=== PATIENT | male | born 1995 ===

== ENCOUNTER 2023-03-04 12:07 | Inpatient (IN) | payer MEDICAID, OTHER ==
[2023-03-04] MEDS ORDERED: SODIUM CHLORIDE 0.9% 1,000 ML IV ONE (12:50)
--- NOTE | 2023-03-04 13:03 | ED ---
General Adult HPI - General Chief complaint: Overdose Stated complaint: Overdose Time Seen by Provider: 03/04/23 12:15 Source: patient, family, EMS, RN notes reviewed, old records reviewed Mode of arrival: ambulatory Limitations: altered mental status - History of Present Illness Initial comments: 27-year-old male presents for opiate overdose. Patient admits to snorting heroin and fentanyl. He was on his way to rehabilitation with his mother. He states that he had taken some benzodiazepines as well. He was breathing but not arousable and was given total 4 mg of intranasal Narcan and was brought to the hospital for evaluation. He denies intentional overdose. No physical complaints. - Related Data Allergies Allergy/AdvReac Type Severity Reaction Status Date / Time No Known Allergies Allergy Verified 03/04/23 12:58 Review of Systems ROS Statement: Those systems with pertinent positive or pertinent negative responses have been documented in the HPI. ROS Other: All systems not noted in ROS Statement are negative. Past Medical History Additional Past Medical History / Comment(s): Anxiety, depression. No inpatient hospitalizations. History of Any Multi-Drug Resistant Organisms: None Reported Past Psychological History: Anxiety, Depression Past Drug Use History: Heroin, Marijuana, Methamphetamine General Exam Limitations: altered mental status General appearance: alert, in no apparent distress Head exam: Present: atraumatic, normocephalic Eye exam: Present: normal appearance, PERRL ENT exam: Present: normal exam Neck exam: Present: normal inspection. Absent: tenderness, meningismus Respiratory exam: Present: normal lung sounds bilaterally. Absent: respiratory distress, wheezes Cardiovascular Exam: Present: regular rate, normal rhythm GI/Abdominal exam: Present: soft. Absent: distended, tenderness, guarding Extremities exam: Present: normal inspection, normal capillary refill. Absent: pedal edema Neurological exam: Present: alert, oriented X3, CN II-XII intact. Absent: motor sensory deficit Psychiatric exam: Present: normal affect, normal mood Skin exam: Present: warm, dry, intact. Absent: cyanosis, diaphoretic Course Vital Signs 03/04/23 03/04/23 12:33 13:59 Temperature 98.5 F Pulse Rate 70 86 Respiratory 16 18 Rate Blood Pressure 100/60 106/60 O2 Sat by Pulse 96 95 Oximetry - Reevaluation(s) Reevaluation #1: 03/04/23 14:36 Patient had been medically cleared and was eager for discharge. He had made suicidal comments to his mother who has petitioned him for psychiatric evaluation. He will be evaluated by EPS nurse. Medical Decision Making - Medical Decision Making Was pt. sent in by a medical professional or institution (, [facility], [employer], urgent care, hospital, or halfway...) When possible be specific @ -No Did you speak to anyone other than the patient for history (EMS, parent, family, police, friend...)? What history was obtained from this source @ -EMS Did you review nursing and triage notes (agree or disagree)? Why? @ -I reviewed and agree with nursing and triage notes Were old charts reviewed (outside hosp., previous admission, EMS record, old EKG, old radiological studies, urgent care reports/EKG's, halfway records)? Report findings @ -No old charts were reviewed Differential Diagnosis (chest pain, altered mental status, abdominal pain women, abdominal pain men, vaginal bleeding, weakness, fever, dyspnea, syncope, headache, dizziness, GI bleed, back pain, seizure, CVA, palpatations, mental health, musculoskeletal)? @ -Differential Mental Health Depression, anxiety, bipolar, psychosis, schizophrenia, borderline personality, situational depression, adjustment disorder, behavioral disorder, brain tumor, malingering, substance abuse, encephalopathy, medication reaction, dementia, hypothyroidism, degenerative neurologic disorder, lupus.... This is not meant to be all-inclusive list EKG interpreted by me (3pts min.). @ -As above X-rays interpreted by me (1pt min.). @ -None done CT interpreted by me (1pt min.). @ -None done U/S interpreted by me (1pt. min.). @ -None done What testing was considered but not performed or refused? (CT, X-rays, U/S, labs)? Why? @ -None What meds were considered but not given or refused? Why? @ -None Did you discuss the management of the patient with other professionals (professionals i.e. [facility], [employer], lab, RT, psych nurse, high school social science teacher, candy spreader, teacher, administrative services officer, casework manager)? Give summary @ -case discussed with EPS nurse Was smoking cessation discussed for >3mins.? @ -No Was critical care preformed (if so, how long)? @ -No Were there social determinants of health that impacted care today? How? (Homelessness, low income, unemployed, alcoholism, drug addiction, transportation, low edu. Level, literacy, decrease access to med. care, fdc, rehab)? @ -No Was there de-escalation of care discussed even if they declined (Discuss DNR or withdrawal of care, Hospice)? DNR status @ -No What co-morbidities impacted this encounter? (DM, HTN, Smoking, COPD, CAD, Cancer, CVA, ARF, Chemo, Hep., AIDS, mental health diagnosis, sleep apnea, morbid obesity)? @ -Mental health diagnosis, drug overdose Was patient admitted / discharged? Hospital course, mention meds given and route, prescriptions, significant lab abnormalities, going to OR and other pertinent info. @ -Patient had initially presented as an overdose requiring Narcan. Patient was medically cleared and was about to the emergency department when he made suicidal statements and was petitioned by his mother. Ultimately the patient was not felt to be safe for discharge and required inpatient psychiatric care. I do agree with this assessment. I completed a clinical certification on this patient. Undiagnosed new problem with uncertain prognosis? @ -No Drug Therapy requiring intensive monitoring for toxicity (Heparin, Nitro, Insulin, Cardizem)? @ -No Were any procedures done? @ -No Diagnosis/symptom? @ -[Overdose, depression, suicidal ideation Acute, or Chronic, or Acute on Chronic? @ -Acute Uncomplicated (without systemic symptoms) or Complicated (systemic symptoms)? @ -Complicated Side effects of treatment? @ -No Exacerbation, Progression, or Severe Exacerbation? @ -No Poses a threat to life or bodily function? How? (Chest pain, USA, OR, pneumonia, PE, COPD, DKA, ARF, appy, cholecystitis, CVA, Diverticulitis, Homicidal, Suicidal, threat to staff... and all critical care pts) @ -Yes, overdose, cardiopulmonary arrest, suicide and self-harm - Lab Data Result diagrams: 03/04/23 12:58 03/04/23 12:58 Lab Results 03/04/23 03/04/23 03/04/23 Range/Units 12:58 12:58 14:45 WBC 6.3 (3.8-10.6) k/uL RBC 4.13 L (4.30-5.90) m/uL Hgb 13.2 (13.0-17.5) gm/dL Hct 39.2 (39.0-53.0) % MCV 94.8 (80.0-100.0) fL MCH 31.9 (25.0-35.0) pg MCHC 33.7 (31.0-37.0) g/dL RDW 12.9 (11.5-15.5) % Plt Count 198 (150-450) k/uL MPV 8.0 Neutrophils % 66 % Lymphocytes % 20 % Monocytes % 8 % Eosinophils % 3 % Basophils % 1 % Neutrophils # 4.2 (1.3-7.7) k/uL Lymphocytes # 1.3 (1.0-4.8) k/uL Monocytes # 0.5 (0-1.0) k/uL Eosinophils # 0.2 (0-0.7) k/uL Basophils # 0.1 (0-0.2) k/uL Sodium 136 L (137-145) mmol/L Potassium 4.2 (3.5-5.1) mmol/L Chloride 97 L (98-107) mmol/L Carbon Dioxide 32 H (22-30) mmol/L Anion Gap 7 mmol/L BUN 18 (9-20) mg/dL Creatinine 0.50 L (0.66-1.25) mg/dL Est GFR (CKD-EPI)AfAm >90 (>60 ml/min/1.73 sqM) Est GFR (CKD-EPI)NonAf >90 (>60 ml/min/1.73 sqM) Glucose 92 (74-99) mg/dL Calcium 9.0 (8.4-10.2) mg/dL Total Bilirubin 0.6 (0.2-1.3) mg/dL AST 47 (17-59) U/L ALT 24 (4-49) U/L Alkaline Phosphatase 78 (38-126) U/L Total Protein 6.8 (6.3-8.2) g/dL Albumin 4.2 (3.5-5.0) g/dL Salicylates <1.0 mg/dL Urine Opiates Screen Detected H (NotDetected) Ur Oxycodone Screen Not Detected (NotDetected) Urine Methadone Screen Not Detected (NotDetected) Ur Propoxyphene Screen Not Detected (NotDetected) Acetaminophen <10.0 ug/mL Ur Barbiturates Screen Not Detected (NotDetected) U Tricyclic Antidepress Not Detected (NotDetected) Ur Phencyclidine Scrn Not Detected (NotDetected) Ur Amphetamines Screen Not Detected (NotDetected) U Methamphetamines Scrn Not Detected (NotDetected) U Benzodiazepines Scrn Detected H (NotDetected) Urine Cocaine Screen Not Detected (NotDetected) U Marijuana (THC) Screen Detected H (NotDetected) Serum Alcohol <10 mg/dL Disposition Clinical Impression: Accidental drug overdose, Suicidal ideation Disposition: ADMITTED IP TO THIS [facility] Condition: Stable Is patient prescribed a controlled substance at d/c from ED?: No Referrals: Nonstaff,Physician [Primary Care Provider] - 1-2 days Time of Disposition: 17:31
[2023-03-04 13:08] LABS: Basophils # (A) 0.1 k/uL (0-0.2); Basophils % (A) 1 %; Eosinophils # (A) 0.2 k/uL (0-0.7); Eosinophils % (A) 3 %; HCT 39.2 % (39.0-53.0); HGB 13.2 gm/dL (13.0-17.5); Lymphocytes # (A) 1.3 k/uL (1.0-4.8); Lymphocytes % (A) 20 %; MCH 31.9 pg (25.0-35.0); MCHC 33.7 g/dL (31.0-37.0); MCV 94.8 fL (80.0-100.0); Monocytes # (A) 0.5 k/uL (0-1.0); Monocytes % (A) 8 %; Neutrophils # (A) 4.2 k/uL (1.3-7.7); Neutrophils % (A) 66 %; Platelet Count 198 k/uL (150-450); RBC 4.13 m/uL (4.30-5.90); RDW 12.9 % (11.5-15.5); WBC 6.3 k/uL (3.8-10.6)
[2023-03-04 13:20] LABS: ALT 24 U/L (4-49); AST 47 U/L (17-59); Acetaminophen <10.0 ug/mL; African American GFR (CKD) >90 (>60 ml/min/1.73 sqM); Albumin 4.2 g/dL (3.5-5.0); Alcohol <10 mg/dL; Alkaline Phosphatase 78 U/L (38-126); Anion Gap 7 mmol/L; Blood Urea Nitrogen 18 mg/dL (9-20); Carbon Dioxide 32 mmol/L (22-30); Chloride 97 mmol/L (98-107); Glucose 92 mg/dL (74-99); Non-African American GFR(CKD) >90 (>60 ml/min/1.73 sqM); Potassium 4.2 mmol/L (3.5-5.1); Salicylate <1.0 mg/dL; Sodium 136 mmol/L (137-145); Total Bilirubin 0.6 mg/dL (0.2-1.3); Total Protein 6.8 g/dL (6.3-8.2)
[2023-03-04 15:24] LABS: Amphetamine Screen,Urine Not Detected (NotDetected); Barbiturate Screen,Urine Not Detected (NotDetected); Benzodiazepines Screen,Urine Detected (NotDetected); Cocaine Screen,Urine Not Detected (NotDetected); Methadone Screen, Urine Not Detected (NotDetected); Opiate Screen,Urine Detected (NotDetected); Oxycodone Screen, Urine Not Detected (NotDetected); Phencyclidine Screen,Urine Not Detected (NotDetected); Tricyclic Antidepressant,Urine Not Detected (NotDetected); Urn Cannabinoid Scrn Detected (NotDetected)
[2023-03-04] MEDS ORDERED: HALOPERIDOL LACTATE 5 MG/ML 1 ML VIAL IM PRN (18:40)
[2023-03-04] MEDS ORDERED: MAGNESIUM HYDROXIDE 2,400 MG/10 ML CUP PO PRN (18:40)
[2023-03-04] MEDS ORDERED: LORazepam 2 MG/ML INJ IM PRN (18:44)
[2023-03-04] MEDS ORDERED: haloperidoL 5 MG TAB PO PRN (18:45)
[2023-03-04] MEDS: LORazepam 1 MG TAB PO PRN (21:27)
--- NOTE | 2023-03-05 00:14 | P.CONS ---
History of Present Illness - Reason for Consult Consult date: 03/05/23 - History of Present Illness The patient is a 27-year-old male with a PMH of polysubstance abuse who was brought into the emergency room after an opiate overdose. The patient was admitted to the mental health unit where he was evaluated. The patient states that he had been struggling with opiate use for several years now and felt that he was addicted. He reports that he had been sober for 3 weeks and was planning to go to a detox facility when he relapsed and subsequently overdose en Route to [facility]. The patient was subsequently given intranasal Narcan by the staff members at [facility] and was taken to the emergency room. Patient reports feeling at his baseline at the time of interview and denied any active complaints. He denied experiencing chest discomfort, shortness of breath, fever, chills, cough, nausea, vomiting, abdominal pain, diarrhea. He denied tobacco or alcohol use. ED documentation was reviewed. Laboratory evaluation in the emergency room was reviewed with urine tox positive for benzodiazepines, marijuana, and opiates with sodium 136, CO2 32, and creatinine 0.5. Review of systems: Pertinent positives and negatives as discussed in HPI, a complete review of systems was performed and all other systems are negative. Physical examination: General: non toxic, no distress, appears at stated age, normal weight Derm: no unusual rashes/lesions, no unusual ecchymoses, warm, dry Head: atraumatic, normocephalic, symmetric Eyes: EOMI, no lid lag, anicteric sclera ENT: Nose and ears atraumatic, no thrush, no pharyngeal erythema Neck: trachea midline, supple Mouth: no lip lesion, mucus membranes moist Cardiovascular: S1S2 reg, no murmur, no edema Lungs: CTA bilateral, no rhonchi, no rales , no accessory muscle use Abdominal: soft, nontender to palpation, no guarding Ext: no gross muscle atrophy, no contractures, Neuro: No gross focal neuro deficits noted Psych: Alert, oriented, appropriate affect Assessment: Polysubstance abuse with opiate overdose Imaging: None performed Data Review: Laboratory evaluation in the emergency room was reviewed with urine tox positive for benzodiazepines, marijuana, and opiates with sodium 136, CO2 32, and creatinine 0.5. Plan: Patient strongly advised on importance of cessation from polysubstance use Obtain repeat BMP to check for resolution of alkalosis Thank you for allowing us to participate in the care of this patient. We will follow peripherally. Do not hesitate to contact us with questions. Someone can be reached from the [facility] hospitalist group at all hours of the day at [phone]. Past Medical History Additional Past Medical History / Comment(s): Anxiety, depression. No inpatient hospitalizations. History of Any Multi-Drug Resistant Organisms: None Reported Smoking Status: Current every day smoker - Past Family History Mother Family Medical History: Hypertension Medications and Allergies Home Medications Medication Instructions Recorded Confirmed Type Buprenorphine/Naloxone 8Mg/2Mg 1 film SL BID 03/04/23 03/04/23 History [Suboxone 8-2Mg Film] PARoxetine [Paxil] 20 mg PO HS 03/04/23 03/04/23 History Allergies Allergy/AdvReac Type Severity Reaction Status Date / Time No Known Allergies Allergy Verified 03/04/23 19:48 Physical Exam Vitals: Vital Signs Temp Pulse Pulse Resp BP BP Pulse Ox 03/04/23 19:59 98.2 F 77 16 136/76 03/04/23 17:56 80 18 106/60 98 03/04/23 13:59 86 18 106/60 95 03/04/23 12:33 98.5 F 70 16 100/60 96 Intake and Output 03/04/23 03/04/23 03/05/23 14:59 22:59 06:59 Other: Weight 61.235 kg 61.235 kg Results CBC & Chem 7: 03/04/23 12:58 03/04/23 12:58 Labs: Abnormal Lab Results - Last 24 Hours (Table) 03/04/23 03/04/23 03/04/23 Range/Units 12:58 12:58 14:45 RBC 4.13 L (4.30-5.90) m/uL Sodium 136 L (137-145) mmol/L Chloride 97 L (98-107) mmol/L Carbon Dioxide 32 H (22-30) mmol/L Creatinine 0.50 L (0.66-1.25) mg/dL Urine Opiates Screen Detected H (NotDetected) U Benzodiazepines Scrn Detected H (NotDetected) U Marijuana (THC) Screen Detected H (NotDetected)
[2023-03-05] MEDS: LORazepam 1 MG TAB PO PRN ×2 (03:22→21:01)
[2023-03-05] MEDS: NICOTINE 14MG/24HR PATCH TRANSDERM SCH (08:08)
[2023-03-05 11:04] LABS: ALT 30 U/L (4-49); AST 65 U/L (17-59); African American GFR (CKD) >90 (>60 ml/min/1.73 sqM); Albumin 4.2 g/dL (3.5-5.0); Alkaline Phosphatase 58 U/L (38-126); Anion Gap 5 mmol/L; Blood Urea Nitrogen 9 mg/dL (9-20); Calcium 8.9 mg/dL (8.4-10.2); Carbon Dioxide 33 mmol/L (22-30); Chloride 101 mmol/L (98-107); Glucose 96 mg/dL (74-99); Non-African American GFR(CKD) >90 (>60 ml/min/1.73 sqM); Potassium 4.4 mmol/L (3.5-5.1); Sodium 139 mmol/L (137-145); Total Bilirubin 0.5 mg/dL (0.2-1.3)
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
[2023-03-05 23:03] LABS: LDL Cholesterol,Calculated 108.5 mg/dL (0.0-131.0)
[2023-03-06] MEDS: LORazepam 1 MG TAB PO PRN ×3 (04:40→20:03)
[2023-03-06 05:34] LABS: African American GFR (CKD) >90 (>60 ml/min/1.73 sqM); Anion Gap 3 mmol/L; Blood Urea Nitrogen 9 mg/dL (9-20); Calcium 9.2 mg/dL (8.4-10.2); Carbon Dioxide 34 mmol/L (22-30); Chloride 101 mmol/L (98-107); Glucose 110 mg/dL (74-99); Non-African American GFR(CKD) >90 (>60 ml/min/1.73 sqM); Potassium 4.5 mmol/L (3.5-5.1); Sodium 138 mmol/L (137-145)
[2023-03-06] MEDS: NICOTINE 14MG/24HR PATCH TRANSDERM SCH (08:49)
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
--- NOTE | 2023-03-06 09:24 | P.PN ---
Subjective Progress Note Date: 03/06/23 Principal diagnosis: Diagnosis: Polysubstance use disorder/mood disorder secondary to substance use Subjective: The patient said that he felt great yesterday calm able to handle i rritants and today starting into withdrawal symptoms were any knows irritability trouble concentrating. On the evaluation he scored 9 which is moderate. In the past he had help from 02/26 of Suboxone which she would use for a few days and then go down to half of that and then come off. He also found that trazodone was helpful to sleep I assured him that trazodone was not addicting therefore was probably a reasonable thing to try. He does have some trouble with sleep. Objective: He is cooperative alert oriented some increased psychomotor activity but logical no signs of psychosis he is not suicidal but wondering whether 30 days in her rehab is going to fix him. Gait and station are normal self-care is adequate some pacing in the [place] Assessment: He does seem more anxious and NG than yesterday Plan: Will add some trazodone at night 100 mg and half Suboxone to aid with withdrawal and increase his ability to participate in the program. Objective - Vital Signs Vital signs: Vital Signs Temp 98.6 F 03/06/23 09:00 Pulse 113 H 03/06/23 09:00 Resp 18 03/06/23 09:00 BP 119/74 03/06/23 09:00 Pulse Ox 99 03/05/23 02:41 FiO2 - Labs CBC & Chem 7: 03/04/23 12:58 03/06/23 05:07 Labs: Abnormal Lab Results - Last 24 Hours (Table) 03/05/23 03/06/23 Range/Units 10:28 05:07 Carbon Dioxide 33 H 34 H (22-30) mmol/L Creatinine 0.47 L 0.48 L (0.66-1.25) mg/dL Glucose 110 H (74-99) mg/dL AST 65 H (17-59) U/L HDL Cholesterol 38.70 L (40.00-60.00) mg/dL
[2023-03-06] MEDS: BUPRENORPHINE-NALOX 8-2 MG TAB 1 EACH TAB.SUBL SL SCH (09:43)
[2023-03-06] MEDS ORDERED: ONDANSETRON 4 MG TAB PO PRN (11:18)
[2023-03-06] MEDS: ACETAMINOPHEN TAB 325 MG TAB PO PRN ×3 (11:34→21:04)
[2023-03-06] MEDS ORDERED: traZODone HCL 100 MG TAB PO SCH (21:00)
[2023-03-07 07:11] VITALS: BP 124/70; PULSE 80; RESP 16; TEMP 98.9
[2023-03-07] MEDS: BUPRENORPHINE-NALOX 8-2 MG TAB 1 EACH TAB.SUBL SL SCH (08:33)
[2023-03-07] MEDS: MAG HYDROX/AL HYDROX/SIMETH 30 ML CUP PO PRN ×2 (08:34→12:45)
[2023-03-07] MEDS ORDERED: ONDANSETRON ODT 4 MG TAB PO PRN (10:33)
[2023-03-07] MEDS ORDERED: LOPERAMIDE 2 MG CAP PO PRN (10:36)
[2023-03-07] MEDS: LORazepam 1 MG TAB PO PRN (10:50)
--- NOTE | 2023-03-07 11:51 | P.DS ---
Providers Date of admission: 03/04/23 18:37 Expected date of discharge: 03/07/23 Attending physician: Gaurang Russell MD Consults: 03/04/23 18:40 Consult Physician Routine Consulting Provider: [facility] Consult Reason/Comments: medical management Do you want consulting provider notified?: Yes, Notify in am Primary care physician: Physician Nonstaff - Discharge Diagnosis(es) (1) Accidental drug overdose Current Visit: Yes Status: Acute Priority: High (2) Substance induced mood disorder Current Visit: Yes Status: Acute Priority: High (3) Opiate dependence, continuous Current Visit: Yes Status: Chronic Priority: Medium (4) Cannabis use disorder Current Visit: Yes Status: Chronic Priority: Medium Hospital Course: Admission HPI: Initial psychiatric evaluation was completed by Dr. Rubin on 03/06/2023 who wrote: "The patient is a 27-year-old male with a PMH of polysubstance abuse who was brought into the emergency room after an opiate overdose. The patient was admitted to the mental health unit where he was evaluated. The patient states that he had been struggling with opiate use for several years now and felt that he was addicted. He reports that he had been sober for 3 weeks and was planning to go to a detox facility when he relapsed and subsequently overdose in the [facility] rehab program. He was riding in the car with his mother. He confesses to the irrational thought that since he was going to be giving up drugs permanently he should have one last fling one last chance to be happy on drugs. He admits that it was fortunate that he did this fully staying in the [facility] because they got him help right away or he would've . Patient admits to snorting heroin and fentanyl. He states that he had taken some benzodiazepines as well. He was breathing but not arousable and was given a total of 4 mg of intranasal Narcan and was brought to the hospital for evaluation. The patient was subsequently given intranasal Narcan by the staff members at [place] and was taken to the emergency room. In the emergency room the patient showed no insight and seemed to think that his mother was trying have him sent to [facility]. He appeared to get more upset when she was in the room. He yelled and tried to intimidate her. He held on to her shirt so she could not leave. He now is terribly embarrassed about what he did but still wants to go back to [place] and get help. Medications at home: Supposedly has been on buprenorphine but taking buprenorphine along with all the opioidsis dangerous and evidently didn't help him stay off the opioids. He was also on Paxil 20 at night. Patient reports feeling hopeful and somewhat embarrassed and calm at the time of the interview. He denied experiencing chest discomfort, shortness of breath, fever, chills, cough, nausea, vomiting, abdominal pain, diarrhea. He denied tobacco or alcohol use. He does complain of nightmares and insomnia but his appetite has been normal self-care is adequate. Hospital course: Upon admission to the unit patient was initially presented as calm, cooperative, and future oriented. Patient was directable and agreeable to commence treatment. Patient got along well with other patients on the unit and followed unit protocol. Patient was compliant with the medications and denied any side effect s throughout hospital course. Patient was started on trazodone for insomnia and Suboxone for opiate withdrawal. Patient spoke of his stressors and engaged in therapy both group and individual. Patient was also seen by medical team for history and physical exam. The patient remained future and goal oriented during the hospitalization and displayed no significant signs or symptoms of overt psychiatric pathology. His primary diagnosis is substance use related. He expresses strong desire to return to rehab. He has strong support from his family. He was transitioned to Remeron for management of nausea and insomnia. The patient was also treated symptomatically with the use of Zofran and Imodium. On the day of discharge, the patient is vehemently denying any suicidal or homicidal ideation, intention, and/or plan. He denies any paranoia or delusions. He has been adherent with his medication is not endorsing any significant side effects. He is future and goal oriented. He was counseled at length the importance of medication adherence and appropriate follow-up. The patient does have a significant history of substance abuse and was counseled great length on abstaining from all substances including tobacco, marijuana, alcohol, and illicit drug use. The patient plans to go to inpatient substance abuse rehabilitation upon discharge. He reports no access to firearms or other weapons. On the day of discharge, he is not endorsing any medical issues or concerns and denies any chest pain, shortness of breath, palpitations, or involuntary muscle movements. Prior to discharge, family meeting will be arranged by executive secretary social welfare to answer any questions and ensure safety. The patient was encouraged to follow-up in the outpatient setting to address comorbid psychiatric pathology that accompany substance use. Mental status exam: General Appearance: Patient appears to be stated age is alert, pleasant, and cooperative. Patient is in no acute distress and has fair hygiene and grooming Behavior: Patient is calmly seated without any agitated behavior. Speech: Patient's speech is fluent and nonpressured. Mood/Affect: Patient reports their mood is "much better", affect is congruent and euthymic to bright. Suicidality/Homicidality: Patient denies having any suicidal or homicidal ideation intent or plan. Perceptions: Patient denies any auditory or visual hallucinations. Though content/process: There is no evidence of any delusional thought content and thought process is linear and goal-directed. Patient is future oriented Memory and concentration: AOX3, grossly intact for the purposes of this session. Can spell "WORLD" backwards correctly. Judgment and insight: Improved with guarded prognosis Impression: Substance-induced mood disorder Opiate use disorder Cannabis use disorder Plan: -Continue with discharge today as patient has improved and stabilized psychiatrically and is not currently an imminent threat to himself and/or others. Patient will remain at chronically elevated risk for harm to self and/or others due to his impulsivity and polysubstance abuse. -Continue medications: Remeron 15 mg by mouth at bedtime for depression/insomnia/nausea Zofran when necessary for nausea -Patient was counseled on the need for medication compliance and appropriate follow-up at mental health and also primary care for medical issues. Patient verbalized understanding and agreed. -Social work to arrange for and conduct family meeting to ensure safety upon discharge and answer any questions/concerns. Social work also to arrange for patients follow up appointments for psychiatric care along with follow up with primary care provider. -Patient counseled on abstaining from recreational drugs and marijuana and alcohol. Was informed/educated on the adverse effects on their physical and mental health. Patient verbally agreed and understood. Patient will be going to [place] for inpatient substance abuse rehabilitation. -Patient was instructed to return to the hospital or seek immediate medical care if their psychiatric or medical symptoms do worsen or reoccur. -Psychoeducation and supportive therapy provided to patient. Risks and benefits of pharmacological treatment versus the risks and benefits of nontreatment weight and discussed. Informed consent discussion held. Common side effects of psychotropics discussed such as, but not limited to headache, GI disturbance, sexual dysfunction, movement disorders, sedation, and orthostatic hypotension. Life threatening and blackbox warnings of prescribed medications also discussed. Potential risks of operating a vehicle or heavy machinery discussed with patient at length. Advised on importance of compliance and a reliable and responsible manner. Patient advised to review FDA consumer labeling of all medications prior to taking. Patient verbalized understanding of potential risks, and agrees with current treatment plan. Patient advised to medically contact physician/emergency personnel if any acute changes in condition occur. Vital Signs Temp 98.9 F 03/07/23 06:56 Pulse 80 03/07/23 06:56 Resp 16 03/07/23 06:56 BP 124/70 03/07/23 06:56 Pulse Ox 99 03/05/23 02:41 FiO2 Laboratory Results WBC 6.3 k/uL (3.8-10.6) 03/04/23 12:58 RBC 4.13 m/uL (4.30-5.90) L 03/04/23 12:58 Hgb 13.2 gm/dL (13.0-17.5) 03/04/23 12:58 Hct 39.2 % (39.0-53.0) 03/04/23 12:58 MCV 94.8 fL (80.0-100.0) 03/04/23 12:58 MCH 31.9 pg (25.0-35.0) 03/04/23 12:58 MCHC 33.7 g/dL (31.0-37.0) 03/04/23 12:58 RDW 12.9 % (11.5-15.5) 03/04/23 12:58 Plt Count 198 k/uL (150-450) 03/04/23 12:58 MPV 8.0 03/04/23 12:58 Neutrophils % 66 % 03/04/23 12:58 Lymphocytes % 20 % 03/04/23 12:58 Monocytes % 8 % 03/04/23 12:58 Eosinophils % 3 % 03/04/23 12:58 Basophils % 1 % 03/04/23 12:58 Neutrophils # 4.2 k/uL (1.3-7.7) 03/04/23 12:58 Lymphocytes # 1.3 k/uL (1.0-4.8) 03/04/23 12:58 Monocytes # 0.5 k/uL (0-1.0) 03/04/23 12:58 Eosinophils # 0.2 k/uL (0-0.7) 03/04/23 12:58 Basophils # 0.1 k/uL (0-0.2) 03/04/23 12:58 Sodium 138 mmol/L (137-145) 03/06/23 05:07 Potassium 4.5 mmol/L (3.5-5.1) 03/06/23 05:07 Chloride 101 mmol/L (98-107) 03/06/23 05:07 Carbon Dioxide 34 mmol/L (22-30) H 03/06/23 05:07 Anion Gap 3 mmol/L 03/06/23 05:07 BUN 9 mg/dL (9-20) 03/06/23 05:07 Creatinine 0.48 mg/dL (0.66-1.25) L 03/06/23 05:07 Est GFR (CKD-EPI)AfAm >90 (>60 ml/min/1.73 sqM) 03/06/23 05:07 Est GFR (CKD-EPI)NonAf >90 (>60 ml/min/1.73 sqM) 03/06/23 05:07 Glucose 110 mg/dL (74-99) H 03/06/23 05:[address] Glu mg/dL 115 03/05/23 10:28 Hemoglobin A1c 5.6 % (0.0-6.0) 03/05/23 10:28 Calcium 9.2 mg/dL (8.4-10.2) 03/06/23 05:07 Total Bilirubin 0.5 mg/dL (0.2-1.3) 03/05/23 10:28 AST 65 U/L (17-59) H 03/05/23 10:28 ALT 30 U/L (4-49) 03/05/23 10:28 Alkaline Phosphatase 58 U/L (38-126) 03/05/23 10:28 Total Protein 7.0 g/dL (6.3-8.2) 03/05/23 10:28 Albumin 4.2 g/dL (3.5-5.0) 03/05/23 10:28 Triglycerides 134.00 mg/dL (0.00-149.00) 03/05/23 10:28 Cholesterol 174.00 mg/dL (0.00-200.00) 03/05/23 10:28 LDL Cholesterol, Calc 108.5 mg/dL (0.0-131.0) 03/05/23 10:28 VLDL Cholesterol, Calc 26.80 mg/dL (5.00-40.00) 03/05/23 10:28 HDL Cholesterol 38.70 mg/dL (40.00-60.00) L 03/05/23 10:28 Cholesterol/HDL Ratio 4.50 Ratio 03/05/23 10: TSH 0.490 mIU/L (0.465-4.680) 03/05/23 10:28 Salicylates <1.0 mg/dL 03/04/23 12:58 Urine Opiates Screen Detected (NotDetected) H 03/04/23 14:45 Ur Oxycodone Screen Not Detected (NotDetected) 03/04/23 14:45 Urine Methadone Screen Not Detected (NotDetected) 03/04/23 14:45 Ur Propoxyphene Screen Not Detected (NotDetected) 03/04/23 14:45 Acetaminophen <10.0 ug/mL 03/04/23 12:58 Ur Barbiturates Screen Not Detected (NotDetected) 03/04/23 14:45 U Tricyclic Antidepress Not Detected (NotDetected) 03/04/23 14:45 Ur Phencyclidine Scrn Not Detected (NotDetected) 03/04/23 14:45 Ur Amphetamines Screen Not Detected (NotDetected) 03/04/23 14:45 U Methamphetamines Scrn Not Detected (NotDetected) 03/04/23 14:45 U Benzodiazepines Scrn Detected (NotDetected) H 03/04/23 14:45 Urine Cocaine Screen Not Detected (NotDetected) 03/04/23 14:45 U Marijuana (THC) Screen Detected (NotDetected) H 03/04/23 14:45 Serum Alcohol <10 mg/dL 03/04/23 12:58 Coronavirus (PCR) Not Detected (Not Detectd) 03/04/23 17:56 Allergies Allergy/AdvReac Type Severity Reaction Status Date / Time No Known Allergies Allergy Verified 03/04/23 19:48 Patient Condition at Discharge: Stable Plan - Discharge Summary Discharge Rx Participant: No New Discharge Prescriptions: New Ondansetron Odt [Zofran ODT] 4 mg PO Q8HR PRN 5 Days #15 tab PRN Reason: nausea/vomiting Mirtazapine [Remeron] 15 mg PO HS 30 Days #30 tab Continue Buprenorphine/Naloxone 8Mg/2Mg [Suboxone 8-2Mg Film] 1 film SL BID Discontinued PARoxetine [Paxil] 20 mg PO HS Discharge Medication List Buprenorphine/Naloxone 8Mg/2Mg [Suboxone 8-2Mg Film] 1 film SL BID 03/04/23 [History] Mirtazapine [Remeron] 15 mg PO HS 30 Days #30 tab 03/07/23 [Rx] Ondansetron Odt [Zofran ODT] 4 mg PO Q8HR PRN 5 Days #15 tab 03/07/23 [Rx] Follow up Appointment(s)/Referral(s): Nonstaff,Physician [Primary Care Provider] - 1-2 days Discharge Disposition: OTHER INSTITUTION NOT DEFINED
[2023-03-07] MEDS ORDERED: MIRTAZAPINE 15 MG TAB PO SCH (21:00)
[2023-03-08] MEDS ORDERED: BUPRENORPHINE-NALOX 8-2 MG TAB 1 EACH TAB.SUBL SL SCH (09:00)
== END 2023-03-07 16:27 | DRG 773 ==
LOC: EC 12:07 → 3MHU 18:37
PROVIDERS: ADMIT Psychiatry & Neurology Psychiatry; ATTEND Psychiatry & Neurology Psychiatry
DX: F11.24 Opioid dependence with opioid-induced mood disorder (principal); T40.2X1A Poisoning by other opioids, accidental (unintentional), initial encounter; F11.23 Opioid dependence with withdrawal; F41.9 Anxiety disorder, unspecified; F32.A Depression, unspecified; F12.10 Cannabis abuse, uncomplicated; F17.210 Nicotine dependence, cigarettes, uncomplicated; G47.00 Insomnia, unspecified; Z79.899 Other long term (current) drug therapy; Z71.51 Drug abuse counseling and surveillance of drug abuser; Z71.89 Other specified counseling; Z20.822 Contact with and (suspected) exposure to COVID-19; Z28.21 Immunization not carried out because of patient refusal
CPT/HCPCS: 36415; 80048; 80053; 80061; 80143; 80179; 80306; 80320; 83036; 84443; 85025; 87635; 99285